=== PATIENT | male | born 1965 | race Caucasian/White ===

== ENCOUNTER 2017-12-27 14:11 | Emergency (ER) | payer BC ==
[2017-12-27 14:34] VITALS: BP 164/91
--- NOTE | 2017-12-27 15:19 | EDM.PDOC ---
ED HPI GENERAL MEDICAL PROBLEM - General Chief Complaint: Neuro Symptoms/Deficits Stated Complaint: MEMORY LOSS Time Seen by Provider: 12/27/17 14:34 - History of Present Illness INITIAL COMMENTS - FREE TEXT/NARRATIVE: 52 y M presenting with CC of memory problem. History obtained from the patient and his who are at the bedside. The patient was took his kids to school this morning. Decided to stay home from work. He took a nap and woke up around noon but couldn't recall events from this morning. His states he's otherwise been acting normally with no slurred speech, facial droop, unilateral weakness, numbness or tingling. He remembers everything he's done since waking up. He has no hx of stroke, [place]. He denies HTN, HLD, DM to me. The only medication he takes is prozac and cymbalta. The inability to recall events this AM made him anxious so he smoked a bowl of marijuana which he says did not help. He has a 40 pack year history of smoking. He has very slightly slurred speech which his says is baseline for him. - Related Data Allergies Allergy/AdvReac Type Severity Reaction Status Date / Time Penicillins Allergy Swelling Verified 04/20/16 11:50 Home Meds: Home Meds DULoxetine HCl [Cymbalta] 20 mg PO DAILY 12/27/17 [History] FLUoxetine HCl [Prozac] 20 mg PO DAILY 12/27/17 [History] FLUoxetine HCl [Prozac] 20 mg PO DAILY 12/27/17 [History] Past Medical History Cardiovascular History: Reports: High Cholesterol, Hypertension, [place], PTCA Respiratory History: Reports: COPD Other Respiratory History: exposed to grain dust without respirator Gastrointestinal History: Reports: Gastritis, GERD Psychiatric History: Reports: Depression - Past Surgical History HEENT Surgical History: Reports: Adenoidectomy, Tonsillectomy GI Surgical History: Reports: Cholecystectomy, Colonoscopy, EGD Social & Family History - Family History Family Medical History: Noncontributory - Tobacco Use Smoking Status *Q: Current Every Day Smoker Years of Tobacco use: 40 Packs/Tins Daily: 0.1 - Caffeine Use Caffeine Use: Reports: Tea - Recreational Drug Use Recreational Drug Use: Yes Recreational Drug Type: Reports: Marijuana/Hashish Recreational Drug Use Frequency: Weekly ED ROS GENERAL - Review of Systems Review Of Systems: See Below Constitutional: Reports: No Symptoms HEENT: Reports: No Symptoms Respiratory: Reports: No Symptoms Cardiovascular: Denies: Chest Pain, Dyspnea on Exertion, Lightheadedness, Palpitations GI/Abdominal: Reports: No Symptoms Skin: Reports: No Symptoms Neurological: Reports: Confusion. Denies: Dizziness, Headache, Numbness, Seizure, Syncope, Tingling, Trouble Speaking, Change in Speech ED EXAM, NEURO - Physical Exam Exam: See Below Exam Limited By: No Limitations General Appearance: Alert, No Apparent Distress Throat/Mouth: Normal Inspection Head Exam: Atraumatic, Normocephalic Neck: Normal Inspection, Full Range of Motion Respiratory/Chest: No Respiratory Distress, Lungs Clear, Normal Breath Sounds Cardiovascular: Normal Peripheral Pulses, Regular Rate, Rhythm, No Murmur GI/Abdominal: Normal Bowel Sounds, Soft, Non-Tender, No Distention Neurological: Alert, Normal Mood/Affect, Other (slightly slurred speech CN II- XII otherwise intact to confrontation. 5/5 strength in the upper and lower extremities. Sensation intact to light touch in all dermatomes, reflexes normal , negative babinski) EKG INTERPRETATION EKG Date: 12/27/17 Time: 15:14 Rhythm: NSR Rate (Beats/Min): 58 [place]: Normal P-Wave: Present QRS: Normal ST-T: Normal Comparison: NA - No Prior EKG Course - Vital Signs Last Recorded V/S: Last Vital Signs Temp 36.1 C 12/27/17 14:20 Pulse 70 12/27/17 14:20 Resp 18 12/27/17 14:20 BP 164/91 H 12/27/17 14:20 Pulse Ox 100 12/27/17 14:20 - Orders/Labs/Meds Orders: Active Orders 24 hr Category Date Time Status EKG Documentation Completion [RC] STAT Care 12/27/17 15:06 Active Labs: Laboratory Tests 12/27/17 12/27/17 Range/Units 15:25 15:25 WBC 8.73 (4.23-9.07) K/mm3 RBC 4.62 L (4.63-6.08) M/mm3 Hgb 13.8 (13.7-17.5) gm/L Hct 41.7 (40.1-51.0) % MCV 90.3 (79.0-92.2) fl MCH 29.9 (25.7-32.2) pg MCHC 33.1 (32.2-35.5) g/dl RDW Std Deviation 42.9 (35.1-43.9) fL Plt Count 249 (163-337) K/mm3 MPV 9.4 (9.4-12.3) fl Neut % (Auto) 71.0 H (34.0-67.9) % Lymph % (Auto) 15.6 L (21.8-53.1) % [place] % (Auto) 9.9 (5.3-12.2) % Eos % (Auto) 3.2 (0.8-7.0) Baso % (Auto) 0.2 (0.1-1.2) % Neut # (Auto) 6.20 H (1.78-5.38) K/mm3 Lymph # (Auto) 1.36 (1.32-3.57) K/mm3 [place] # (Auto) 0.86 H (0.30-0.82) K/mm3 Eos # (Auto) 0.28 (0.04-0.54) K/mm3 Baso # (Auto) 0.02 (0.01-0.08) K/mm3 Sodium 139 (136-145) mEq/L Potassium 4.3 (3.5-5.1) mEq/L Chloride 103 (98-107) mEq/L Carbon Dioxide 28 (21-32) mEq/L Anion Gap 12.3 (5-15) BUN 12 (7-18) mg/dL Creatinine 1.0 (0.7-1.3) mg/dL Est Cr Clr Drug Dosing 101.61 mL/min Estimated GFR (MDRD) > 60 (>60) mL/min BUN/Creatinine Ratio 12.0 L (14-18) Glucose 113 H (74-106) mg/dL Calcium 8.9 (8.5-10.1) mg/dL Total Bilirubin 0.3 (0.2-1.0) mg/dL AST 23 (15-37) U/L ALT 25 (16-63) U/L Alkaline Phosphatase 79 (46-116) U/L Total Protein 7.4 (6.4-8.2) g/dl Albumin 3.7 (3.4-5.0) g/dl Globulin 3.7 gm/dL Albumin/Globulin Ratio 1.0 (1-2) - Re-Assessments/Exams Free Text/Narrative Re-Assessment/Exam: DDX: dehydration, electrolyte abnormality, cannabis use, unlikely TGA or CVA 52 y M presenting with memory problem. VS notable only for BP 164/91. On exam patient had no obvious focal neuro deficits. His slurred speech is something he' s had for years and not new at all. CBC unremarkable. CMP notable only for mild hyperglycemia. EKG normal. The patient has a discrete amount of time he is not able to recall but since that time has been able to form new memories. For example, he remembers waking up from the nap and making the decision to come to the hospital. At this time I have such low suspicion for an ischemic event that Further diagnostic testing is not indicated. However, should he develop worsening memory problems, focal weakness, numbness tingling, new slurred speech , visual problems, DEE or any other symptoms suggestive of a TIA/stroke he is to report immediately to the ED for re-evaluation. He is to follow up closely with his PCP who is in town. All questions answered, patient and his are in agreement with the plan. Departure - Departure Time of Disposition: 16:32 Disposition: Home, Self-Care 01 Condition: Good Clinical Impression: Amnesia - Discharge Information *PRESCRIPTION DRUG MONITORING PROGRAM REVIEWED*: No *COPY OF PRESCRIPTION DRUG MONITORING REPORT IN PATIENT CRISTINA: No Instructions: Transient Global Amnesia Referrals: Loren Milner ORDER CHECKER [Primary Care Provider] - Forms: ED Department Discharge Additional Instructions: You've been seen in the ED today for memory problems and confusion today. At this time there does not appear to be a dangerous cause for your symptoms at this time. It is safe to go home. Follow up with your PCP. If at any time you have new facial droop, slurred speech, weakness, numbness or tingling on one side of your body. - My Orders Last 24 Hours: My Active Orders 12/27/17 15:06 EKG Documentation Completion [RC] STAT - Assessment/Plan Last 24 Hours: My Active Orders 12/27/17 15:06 EKG Documentation Completion [RC] STAT
== END 2017-12-27 16:57 | disposition home or self-care (01) ==
LOC: JD.ED 14:11
DX: R41.3 Other amnesia (principal); F17.210 Nicotine dependence, cigarettes, uncomplicated; Z88.0 Allergy status to penicillin
CPT/HCPCS: 36415; 80053; 85025; 93005; 93010; 99284-25; 99285-25

== ENCOUNTER 2019-01-26 07:52 | Emergency (ER) | payer BC ==
[2019-01-26 08:12] VITALS: BP 141/83; PULSE 75
--- NOTE | 2019-01-26 08:14 | EDM.PDOC ---
ED HPI GENERAL MEDICAL PROBLEM - General Chief Complaint: ENT Problem Stated Complaint: DENTAL COMPLAINT Time Seen by Provider: 01/26/19 08:14 - History of Present Illness INITIAL COMMENTS - FREE TEXT/NARRATIVE: 53-year-old male presents emergency room with dental pain and left facial swelling. This started overnight progressively getting worse he has a molar that is fractured. He has not sought dental care for this yet. Patient denies any fevers or chills he has some mild to moderate discomfort. He's had no nausea vomiting. Patient has chronic asthma this is been doing okay. He's otherwise been doing well no chest pain chest pressure abnormal breathing difficulties or shortness of breath. He's had no throat swelling or difficulty swallowing. Left Face/Facial Pain Score (Numeric/FACES): 6 - Related Data Allergies Allergy/AdvReac Type Severity Reaction Status Date / Time Penicillins Allergy Swelling Verified 01/26/19 08:11 Home Meds: Home Meds Clindamycin HCl 300 mg PO Q6H #40 capsule 01/26/19 [Rx] Fluticasone/Salmeterol [Advair 250-50 Diskus] 1 each IH DAILY 01/26/19 [History] Past Medical History Cardiovascular History: Reports: High Cholesterol, Hypertension, [place], PTCA Respiratory History: Reports: Asthma, COPD Other Respiratory History: exposed to grain dust without respirator Gastrointestinal History: Reports: Gastritis, GERD Psychiatric History: Reports: Depression - Infectious Disease History Infectious Disease History: Reports: Chicken Pox - Past Surgical History HEENT Surgical History: Reports: Adenoidectomy, Tonsillectomy GI Surgical History: Reports: Cholecystectomy, Colonoscopy, EGD Neurological Surgical History: Reports: Other (See Below) Social & Family History - Family History Family Medical History: Noncontributory - Tobacco Use Smoking Status *Q: Never Smoker - Caffeine Use Caffeine Use: Reports: Coffee - Recreational Drug Use Recreational Drug Use: Yes Drug Use in Last 12 Months: Yes Recreational Drug Type: Reports: Marijuana/Hashish Recreational Drug Use Frequency: Weekly ED ROS ENT - Review of Systems Review Of Systems: See Below Constitutional: Reports: No Symptoms HEENT: Reports: Dental Pain. Denies: Throat Pain, Throat Swelling Respiratory: Reports: Wheezing (Occasional) Cardiovascular: Reports: No Symptoms GI/Abdominal: Reports: No Symptoms : Reports: No Symptoms Neurological: Reports: No Symptoms ED EXAM, ENT - Physical Exam Exam: See Below Exam Limited By: No Limitations General Appearance: Alert, No Apparent Distress Mouth/Throat: Other (He's had a fractured molar left rear several missing teeth. No significant swelling around this tooth he does have some discomfort with it palpation over the parotid gland causes more discomfort than the tooth. The area were the duct should be is mildly swollen nonerythematous no stone visualized.) Head: Atraumatic, Other (Left cheek swelling this extends into the upper neck but mildly so). No: Normocephalic Neck: Other (I'll swelling left side upper region). No: Lymphadenopathy (L), Lymphadenopathy (R) Respiratory/Chest: No Respiratory Distress, Lungs Clear, Other (Crackles or rhonchi occasional expiratory wheeze) Cardiovascular: Normal Peripheral Pulses, Regular Rate, Rhythm, No Edema GI/Abdominal: Normal Bowel Sounds, Soft, Non-Tender Course - Vital Signs Last Recorded V/S: Last Vital Signs Temp 36.2 C 01/26/19 08:10 Pulse 75 01/26/19 08:10 Resp 16 01/26/19 08:10 BP 141/83 H 01/26/19 08:10 Pulse Ox 95 01/26/19 08:10 - Orders/Labs/Meds Orders: Active Orders 24 hr Category Date Time Status Sodium Chloride 0.9% [Saline Flush] Med 01/26/19 08:36 Active 10 ml FLUSH ONETIME PRN Medication Orders Sodium Chloride (Saline Flush) 10 ml FLUSH ONETIME PRN PRN Reason: IV FLUSH Last Admin: 01/26/19 08:55 Dose: 10 ml Labs: Laboratory Tests 01/26/19 01/26/19 Range/Units 09:00 09:00 WBC 11.77 H (4.23-9.07) K/mm3 RBC 4.40 L (4.63-6.08) M/mm3 Hgb 13.7 (13.7-17.5) gm/dl Hct 39.4 L (40.1-51.0) % MCV 89.5 (79.0-92.2) fl MCH 31.1 (25.7-32.2) pg MCHC 34.8 (32.2-35.5) g/dl RDW Std Deviation 42.1 (35.1-43.9) fL Plt Count 257 (163-337) K/mm3 MPV 9.5 (9.4-12.3) fl Neutrophils % (Manual) 76 H (40-60) % Band Neutrophils % 0 (0-10) % Lymphocytes % (Manual) 15 L (20-40) % Atypical Lymphs % 0 % Monocytes % (Manual) 7 (2-10) % Eosinophils % (Manual) 2 (0.8-7.0) % Basophils % (Manual) 0 L (0.2-1.2) Platelet Estimate Adequate RBC Morph Comment Normal Sodium 135 L (136-145) mEq/L Potassium 4.4 (3.5-5.1) mEq/L Chloride 102 (98-107) mEq/L Carbon Dioxide 28 (21-32) mEq/L Anion Gap 9.4 (5-15) BUN 15 (7-18) mg/dL Creatinine 1.0 (0.7-1.3) mg/dL Est Cr Clr Drug Dosing 100.47 mL/min Estimated GFR (MDRD) > 60 (>60) mL/min BUN/Creatinine Ratio 15.0 (14-18) Glucose 116 H (74-106) mg/dL Calcium 8.7 (8.5-10.1) mg/dL Meds: Medications Generic Name Dose Route Start Last Admin Trade Name Freq PRN Reason Stop Dose Admin Sodium Chloride 10 ml 01/26/19 08:36 01/26/19 08:55 Saline Flush FLUSH 10 ml ONETIME PRN Administration IV FLUSH Discontinued Medications Generic Name Dose Route Start Last Admin Trade Name Freq PRN Reason Stop Dose Admin Iopamidol 100 ml 01/26/19 08:36 01/26/19 08:55 Isovue-300 (61%) IVPUSH 01/26/19 08:37 100 ml ONETIME ONE Administration - Re-Assessments/Exams Free Text/Narrative Re-Assessment/Exam: 01/26/19 10:25 Initially it was thought that his symptoms could be coming from a tooth but I cannot exclude parotid gland pathology went ahead and check to CT dated is consistent with a dental abscess that is fractured and extended into the cheek. Patient will be started on oral clindamycin as he is penicillin allergic. Patient does not believe he needs anything stronger than Tylenol for the pain. Departure - Departure Time of Disposition: 10:15 Disposition: Home, Self-Care 01 Clinical Impression: Dental abscess - Discharge Information Prescriptions: Clindamycin HCl 300 mg PO Q6H #40 capsule Referrals: PCP,None [Primary Care Provider] - Forms: ED Department Discharge Additional Instructions: Return to the emergency room with any questions problems worsening symptoms. Take the antibiotics as directed, this is clindamycin take 4 times daily for 10 days. Get in to see a dentist as soon as you can this will not completely improve until this tooth is dealt with. Follow up in Hospital clinic next week to establish with her regular physician. [phone] - My Orders Last 24 Hours: My Active Orders 01/26/19 08:36 Sodium Chloride 0.9% [Saline Flush] 10 ml FLUSH ONETIME PRN - Assessment/Plan Last 24 Hours: My Active Orders 01/26/19 08:36 Sodium Chloride 0.9% [Saline Flush] 10 ml FLUSH ONETIME PRN
[2019-01-26] MEDS ORDERED: Sodium Chloride 0.9% 10 ML Syringe FLUSH PRN (08:36)
[2019-01-26] MEDS ORDERED: Iopamidol 612 MG/ML 100 ML Bottle IVPUSH ONE (08:36)
--- NOTE | 2019-01-26 09:36 | CT ---
CT neck (without and with contrast) Technique: Multiple axial sections were obtained from above the external auditory canals inferiorly to slightly above the lung apices. Study first performed without contrast. Intravenous contrast then given and repeat imaging performed. Reconstructed coronal and sagittal images were obtained. Findings: Soft tissue swelling seen within the subcutaneous fat of the left cheek. There is also inflammatory change extending deep to the adjacent muscle and adjacent to the left mandible. This inflammatory change does not arise from the parotid gland. No abnormal calcifications seen to indicate calcified parotid duct stone. Slightly prominent lymph nodes seen next to the area of inflammatory change. No parapharyngeal abnormalities are seen. Slight mucosal thickening noted within the ethmoid sinuses. Mastoid sinuses show minimal mucosal thickening on the right side. Bone window settings were reviewed which show disc space narrowing within the cervical spine with posterior spurring at C6-C7. Mild anterior spurring noted at C5-C6 and C6-C7. There is a defect being seen within the left side of the mandible presumably representing dental abscess. No areas of abnormal enhancement are seen. Visualized lung apices are clear. Impression: 1. Diffuse inflammatory change within the left cheek extending deep to the superficial muscle and adjacent to the left side of the mandible. This inflammatory change is most likely from tooth abscess with bony defect being seen within the adjacent mandible which is felt compatible with bony rupture of the abscess. No soft tissue abscess seen at this time. 2. Slight adenopathy within the left neck believed to be due to the inflammatory process. Diagnostic code #5
== END 2019-01-26 10:28 | disposition home or self-care (01) ==
LOC: JD.ED 07:52
DX: K04.7 Periapical abscess without sinus (principal); I10 Essential (primary) hypertension; J44.9 Chronic obstructive pulmonary disease, unspecified; Z79.51 Long term (current) use of inhaled steroids
CPT/HCPCS: 36415; 70492; 80048; 85007; 85027; 99283; Q9967